=== PATIENT | female | born 1950 | race Caucasian/White ===

== ENCOUNTER → 2020-05-18 13:03 | Outpatient (BNVA) | payer MEDICARE, SELFPAY | PROVIDERS: Family Provider Family Medicine; Referring Provider Nurse Practitioner Family; Visit Provider Podiatrist Foot & Ankle Surgery | DX: M79.671 Pain in right foot (principal); M79.672 Pain in left foot; G62.9 Polyneuropathy, unspecified | CPT/HCPCS: 73630 ==

== ENCOUNTER 2021-02-08 10:51 | Outpatient (CLI) | payer MEDICARE, SELFPAY ==
--- NOTE | 2021-02-08 10:54 | MM_ITS ---
WS: [id number] SCREENING DIGITAL MAMMOGRAM WITH CAD HISTORY: SCREENING COMPARISON: 01/28/2019 and 01/01/2018 Bilateral CC and MLO views submitted. Computer aided detection analyzed. Breast composition: There are scattered areas of fibroglandular density. No suspicious masses, microc alcifications or architectural distortion. Benign lucent centered calcification in the anterior RIGHT breast. MM/[place] [id number] IMPRESSION: BI-RADS: 2-Benign FOLLOW UP: 1 Year Follow-up
== END 2021-02-08 10:52 | disposition home or self-care (01) ==
LOC: RADSHAW 10:53
PROVIDERS: Visit Provider Nurse Practitioner Family
DX: Z12.31 Encounter for screening mammogram for malignant neoplasm of breast (principal)
CPT/HCPCS: 77067

== ENCOUNTER → 2021-03-09 15:34 | Outpatient (BNVA) | payer MEDICARE, SELFPAY | PROVIDERS: PCP Nurse Practitioner Family; Visit Provider Podiatrist Foot & Ankle Surgery | DX: M21.611 Bunion of right foot (principal) | CPT/HCPCS: 73630 ==

== ENCOUNTER 2021-03-22 07:55 | Outpatient (CLI) | payer MEDICARE, SELFPAY ==
--- NOTE | 2021-03-22 08:18 | XR_ITS ---
WS: [id number] Exam: XR cervical spine 4-5V [id number] Date/Time of Exam: 03/22/2021 8:19 AM Reason For Exam: CERVICALGIA No fracture or dislocation. Moderately advanced degenerative disc changes from C3 to C7 with spondylo sis. No instability or subluxation noted on flexion or extension views. There is Limited flexion with some straightening of the C-spine. Paraspinal soft tissues appear normal. The odontoid is intact. Fa cet arthropathy at all levels. XR/XR cervical spine 4-5V 93007 IMPRESSION: 1. No fracture, malalignment or instability. 2. Moderately advanced degenerative changes from C3 to C7.
== END 2021-03-22 07:56 | disposition home or self-care (01) ==
PROVIDERS: PCP Nurse Practitioner Family; Visit Provider Nurse Practitioner Family
DX: M54.2 Cervicalgia (principal)
CPT/HCPCS: 72050

== ENCOUNTER 2021-05-17 05:49 | Outpatient (CLI) | payer MEDICARE, SELFPAY ==
[2021-05-17] VITALS (7 sets, daily range): BP systolic 119–154; BP diastolic 73–88; PULSE 67–77; RESP 15–16; TEMP 36.6–36.7; O2SAT 94–97; BMI 26.3
--- NOTE | 2021-05-17 07:28 | AMB.MCA ---
Patient Information Referred by: Chanda Morgan Symptom onset date: 05/11/21 COVID 19 common symptoms: positive cough, loss of sense of smell and/or taste and nausea Severity: mild Treatment prior to arrival: none [facility] COVID test results: No Data to Display outside results available, scanned (positive PCR 05/13) Criteria/Plan Inclusion/Exclusion Criteria weight >/= 40kg, + direct test </= 10 days ago and symptom onset </= 10 days ago age >/= 65 not requiring hospitalization, not requiring oxygen (if not chronically on oxygen) and no increase oxygen requirement (if chronically on oxygen) Patient education patient/family/caregiver received/reviewed fact sheet, Emergency Use Authorization/unapproved drug status discussed with patient/family/caregiver, alternatives to this treatment discussed with patient/family/caregiver, risks and benefits of medication reviewed with patient/family/caregiver, patient/family/caregiver given opportunity for questions, which were answered and patient consents to receiving Monoclonal Antibody Treatment Plan for treatment Meets criteria for Monoclonal Antibody infusion Ordering Monoclonal Antibody infusion for today
--- NOTE | 2021-05-17 09:27 | PC.NURSE ---
PT SITTING IN CHAIR COMFORTABLY. VITAL SIGNS TAKEN. PATIENT WNL.
--- NOTE | 2021-05-21 13:16 | DCPLANNER ---
communication manager had message that patient received the monoclonal antibody infusion. communication manager called phone number [phone], unable to speak with patient at this time, a voicemail was left for patient.
== END 2021-05-17 05:50 | disposition home or self-care (01) ==
LOC: ER 05:54
PROVIDERS: PCP Nurse Practitioner Family; Visit Provider Family Medicine
DX: U07.1 COVID-19 (principal)

== ENCOUNTER 2021-06-22 09:02 | Outpatient (CLI) | payer MEDICARE, SELFPAY ==
--- NOTE | 2021-06-22 09:20 | XR_ITS ---
WS: [id number] Exam: XR foot RT min 3V* [id number] Date/Time of Exam: 06/22/2021 9:37 AM Reason For Exam: R ANKLE PAIN/ACCIDENTAL FALL/ANKLE SWELLING JOINT PAIN Comparison 03/09/2021. There is a transverse fracture through the styloid process of the proximal fifth metatarsal. No signi ficant displacement. No other fractures are identified. No soft tissue foreign bodies. Anterior and p osterior calcaneal spurs. XR/XR foot RT min 3V* [id number] IMPRESSION: 1. Nondisplaced transverse fracture through the proximal fifth metatarsal.
== END 2021-06-22 09:03 | disposition home or self-care (01) ==
PROVIDERS: PCP Nurse Practitioner Family; Visit Provider Nurse Practitioner Family
DX: M25.471 Effusion, right ankle (principal); S92.354A Nondisplaced fracture of fifth metatarsal bone, right foot, initial encounter for closed fracture; W19.XXXA Unspecified fall, initial encounter
CPT/HCPCS: 73630

== ENCOUNTER → 2021-07-09 13:00 | Outpatient (BNVA) | payer MEDICARE, SELFPAY | PROVIDERS: PCP Nurse Practitioner Family; Referring Provider Nurse Practitioner Family; Visit Provider Podiatrist Foot & Ankle Surgery | DX: S92.351A Displaced fracture of fifth metatarsal bone, right foot, initial encounter for closed fracture (principal); X58.XXXA Exposure to other specified factors, initial encounter | CPT/HCPCS: 73630 ==

== ENCOUNTER → 2021-08-12 08:01 | Outpatient (BNVA) | payer MEDICARE, SELFPAY | PROVIDERS: PCP Nurse Practitioner Family; Visit Provider Podiatrist Foot & Ankle Surgery | DX: S92.351D Displaced fracture of fifth metatarsal bone, right foot, subsequent encounter for fracture with routine healing (principal); X58.XXXD Exposure to other specified factors, subsequent encounter | CPT/HCPCS: 73630 ==

== ENCOUNTER 2021-09-06 08:52 | Outpatient (CLI) | payer MEDICARE, SELFPAY ==
--- NOTE | 2021-09-06 08:57 | XR_ITS ---
WS: [id number] SCREENING DEXA SCAN [employer] CLINICAL INFORMATION: ASYMPTOMATIC MENOPAUSAL STATE, UNSPECIFIED FRACTURE OF FOOT COMPARISON: None. FINDINGS: The L1-L4 bone mineral density measures 0.859 g/cm2. This corresponds to a T score score of -2.7 and Z score of -1.2. Left femoral neck bone mineral density measures 0.817 g/cm2. This corresponds to a T score of -1.5 an d Z score of -0.1. Right femoral neck bone mineral density measures 0.785 g/cm2. This corresponds to a T score -1.8of an d Z score of -0.3. Mean femoral neck bone mineral density measures 0.801 g/cm2. This corresponds to a T score of -1.6 an d Z score of -0.2. XR/XR DEXA axial skeleton* [id number] IMPRESSION: Osteoporosis in the lumbar spine. Osteopenia in the femoral necks. Patient's FRAX calculated 10 year probability for major osteoporotic fracture i s 21.0 % and osteoporotic hip fracture is 4.9%.
== END 2021-09-06 08:53 | disposition home or self-care (01) ==
PROVIDERS: PCP Nurse Practitioner Family; Visit Provider Nurse Practitioner Family
DX: M19.90 Unspecified osteoarthritis, unspecified site (principal); Z78.0 Asymptomatic menopausal state; S92.909A Unspecified fracture of unspecified foot, initial encounter for closed fracture; X58.XXXA Exposure to other specified factors, initial encounter; M81.0 Age-related osteoporosis without current pathological fracture; M85.88 Other specified disorders of bone density and structure, other site
CPT/HCPCS: 77080

== ENCOUNTER → 2021-09-15 08:01 | Outpatient (BNVA) | payer MEDICARE, SELFPAY | PROVIDERS: PCP Nurse Practitioner Family; Visit Provider Podiatrist Foot & Ankle Surgery | DX: S92.354D Nondisplaced fracture of fifth metatarsal bone, right foot, subsequent encounter for fracture with routine healing (principal); X58.XXXD Exposure to other specified factors, subsequent encounter | CPT/HCPCS: 73630 ==

== ENCOUNTER → 2022-04-27 09:17 | Outpatient (BNVA) | payer MEDICARE, SELFPAY | PROVIDERS: PCP Nurse Practitioner Family; Referring Provider Nurse Practitioner Family; Visit Provider Orthopaedic Surgery | DX: M67.911 Unspecified disorder of synovium and tendon, right shoulder (principal); M25.511 Pain in right shoulder | CPT/HCPCS: 73030; 99203 ==

== ENCOUNTER → 2022-05-11 08:59 | Outpatient (BNVA) | payer MEDICARE, SELFPAY | PROVIDERS: PCP Nurse Practitioner Family; Visit Provider Nurse Practitioner Family | DX: M67.912 Unspecified disorder of synovium and tendon, left shoulder (principal) | CPT/HCPCS: 20610; 99213; 99214 ==

== ENCOUNTER 2022-06-02 08:35 | Outpatient (CLI) | payer MEDICARE, SELFPAY ==
--- NOTE | 2022-06-02 08:42 | MR_ITS ---
WS: [id number] MRI RIGHT SHOULDER HISTORY: PAIN IN R SHOULDER/STIFFNESS OF UNSPECIFIED JOINT COMPARISON: 04/27/2022 TECHNIQUE: Multiplanar sequences of the shoulder joint are submitted. Moderate AC joint hypertrophy. There is fluid extending through the AC joint which is contiguous with the subacromial bursa. Hypertrophic osteophytes encroaching upon the myotendinous insertion of the s upraspinatus. Mild acromial impingement. Moderate fluid in the subacromial and subdeltoid bursa. Join t effusion extends into the axillary pouch. No os acromion. Biceps tendon in normal position. Heart riding humeral head. Mild subacromial impingement. There is significant motion artifact. Supras pinatus tendon is torn completely and retracted to the medial humeral head. Additional tear at the in sertion site of the infraspinatus with tendinopathy. There is fluid extending interstitial along the infraspinatus tendon sheath. Subscapularis tendon is intact. Narrowing of the glenohumeral joint. Int rasubstance degeneration of the labrum. No labral tear identified. No fractures. MR/MR shoulder RT wo con* [id number] IMPRESSION: 1. Quality of this examination is limited by motion artifact. 2. Severe AC joint osteoarthritis with encroachment upon the myotendinous inse rtion of the supraspinatus. 3. Complete tear of the supraspinatus tendon with retraction to the glenoid. 4. Partial high-grade tear distal infraspinatus tendon with fluid extending al tara the tendon sheath. Additional tendinopathy and thickening of the more proxi mal tendon. 5. Glenohumeral joint osteoarthritis. 6. Moderate subacromial and subdeltoid bursal distention and axillary pouch ef fusion.
== END 2022-06-02 08:36 | disposition home or self-care (01) ==
LOC: RAD 08:36
PROVIDERS: PCP Nurse Practitioner Family; Visit Provider Nurse Practitioner Family
DX: M25.60 Stiffness of unspecified joint, not elsewhere classified (principal); M24.811 Other specific joint derangements of right shoulder, not elsewhere classified; M19.011 Primary osteoarthritis, right shoulder
CPT/HCPCS: 73221

== ENCOUNTER → 2022-06-21 08:41 | Outpatient (BNVA) | payer MEDICARE, SELFPAY | PROVIDERS: PCP Nurse Practitioner Family; Visit Provider Orthopaedic Surgery | DX: Z09 Encounter for follow-up examination after completed treatment for conditions other than malignant neoplasm (principal); M75.101 Unspecified rotator cuff tear or rupture of right shoulder, not specified as traumatic | CPT/HCPCS: 99213; 99214 ==

== ENCOUNTER 2022-07-21 08:04 | Day surgery (SDC) | payer MEDICARE, SELFPAY ==
[2022-07-20 11:57] VITALS: BMI 25.9
[2022-07-21] VITALS (13 sets, daily range): BP systolic 133–184; BP diastolic 76–96; PULSE 77–99; RESP 14–18; TEMP 36.1–36.6; O2SAT 95–100
--- NOTE | 2022-07-21 08:34 | ANES.PREANE2 ---
Pre-Anesthetic Assessment Height/Weight: Height 1.65 m Weight 70.76 kg Temp Pulse Resp BP Pulse Ox O2 Del Method 97.9 F 78 16 184/96 97 07/21/22 08:17 07/21/22 08:17 07/21/22 08:17 07/21/22 08:17 07/21/22 08:17 07/21/22 08:25 Preop Diagnosis: Rotator cuff tear right shoulder Operation Date: 07/21/22 09:30 Proposed Procedures p rotator cuff repair right:79690,M75.101(Right) - Broderick Lawrence MD s Shoulder Arthroscopy(Right) - Broderick Lawrence MD Familial anesthetic complications: none Was Beta Ruben taken within 24 hours: N/A Was Clonidine taken within 24 hours: N/A Last intake: Intake Last Liquid Date 07/20/22 Last Liquid Time 23:00 Last Solid Date 07/20/22 Last Solid Time 18:30 Social No alcohol and No tobacco Exam alert, oriented x 3, clear to auscultation bilaterally and regular rate & rhythm Airway Submandibular: within normal limits Cervical ROM: within normal limits Mallampati: Class II Comments: Comments: Missing most teeth Pulmonary None reported CV/HEM Flecainide since 1993 for diagnosis not known to patient other that fast heart which was never associated with pre syncope, n/v, [place] - since than has been on same dose of medication with no known symptoms since. None reported Hepatic None reported GI Gastroesophageal Reflux Disease Metabolic Hyperlipidemia Neuropsych Neuropathy Anesthetic Plan ASA status: 2 Anesthesia: Anesthesia Evaluation, General and Regional (specify below) (Brachial plexus block) Other: We discussed risk and benefits of general anesthesia including PONV, sore throat (sometimes severe), corneal abrasion, positioning and peripheral nerve injuries, life threatening allergic reaction, post operative ICU admission requiring prolonged intubation, aspiration, stroke, heart attack, , and rare incidences of recall. Patient consents to proceed with general anesthesia. We discussed risk and benefits of nerve block for post op pain control including management of pain and titration of pain medications as signs/symptoms of nerve block wearing off begin to appear and/or prior bed. We discussed risk of failed nerve block, vascular injury or other vital structure injury, abscess/infection, LAST, and nerve injury. Plan general anesthesia, BP within 10% of baseline targeted at the auditory meatus taking into consideration distance between auditory meatus and BP cuff position and conversion factor of 1.36 cm H20 = 1 mmHg Medications/Allergies Home Medications Medication Instructions Recorded Confirmed Last Taken Type gabapentin 300 mg capsule 300 mg PO TID 05/18/20 07/21/22 07/21/22 History gemfibrozil 600 mg tablet 600 mg PO BID 05/18/20 07/21/22 07/21/22 History levothyroxine 25 mcg capsule 25 mcg PO DAILY 05/18/20 07/21/22 07/21/22 History flecainide 100 mg tablet 100 mg PO Q12H 03/09/21 07/21/22 07/21/22 History omeprazole magnesium 20 mg 20 mg PO BID 03/09/21 07/21/22 07/21/22 History tablet,delayed release (Prilosec OTC) ezetimibe 10 mg tablet (Zetia) 10 mg PO DAILY 07/20/22 07/21/22 07/20/22 History Allergies Allergy/AdvReac Type Severity Reaction Status Date / Time Sulfa (Sulfonamide Allergy Intermediate rash Verified 07/20/22 11:51 Antibiotics) PFSH Anesthesia Medical History Hypercholesterolemia Hypothyroid Neuropathy Surgical History H/O: hysterectomy (~1998) Previous back surgery (~2014) Family History Mother CAD (coronary artery disease) Father CAD (coronary artery disease) Diabetes Denies family history of Chronic kidney disease (CKD) Suicide Bleeding disorder Cancer Social History Smoking and tobacco status: never smoked Alcohol intake: never Household members: spouse Housing: House Marital status: Current occupational status: retired Data Anesthesia Cardiac Studies: No Data to Display
[2022-07-21] MEDS: sodium chloride 0.9% 1,000 ML 30 ML IV (08:36)
[2022-07-21] MEDS: acetaminophen 500 mg Tablet 1000 MG PO (08:36)
--- NOTE | 2022-07-21 08:41 | ECG_ITS ---
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 Measurements Intervals Diggs Rate: 71 P: 57 NE: 203 QRS: 118 QRSD: 104 T: 42 QT: 402 QTc: 439 Interpretive Statements SINUS RHYTHM INDETERMINATE AXIS INCOMPLETE RIGHT BUNDLE BRANCH BLOCK [90+ ms QRS DURATION, TERMINAL R IN V1/V2, 40+ ms S IN I/aVL/V4/V5/V6] LEFT POSTERIOR FASCICULAR BLOCK [QRS AXIS > 109, INFERIOR Q] No previous ECG available for comparison Electronically Signed On 07-21-2022 20:49:03 CDT by Mehrdad Toussaint M.D. [id number]
--- NOTE | 2022-07-21 08:57 | W.PM.OPSUD ---
Surgery/Procedure H&P Update DATE OF PROCEDURE: July 21, 2022 DATE H&P PERFORMED: 06/21/22 H&P UPDATE INFORMATION: I have reviewed H&P completed within last 30 days PREOP DIAGNOSIS: Rotator cuff tear right shoulder PLANNED PROCEDURE: Operation Date: 07/21/22 09:30 Proposed Procedures p rotator cuff repair right:07163,M75.101(Right) - Broderick Lawrence MD s Shoulder Arthroscopy(Right) - Broderick Lawrence MD
[2022-07-21] MEDS: midazolam 1 mg/mL INJ 2 mL 2 MG IVP (09:12)
[2022-07-21] MEDS: ceFAZolin 2,000 MG in sodium chloride 0.9% (plus) 50 ML 100 MG IV (09:23)
--- NOTE | 2022-07-21 09:50 | ANES.PROC ---
Anesthesia Procedures Procedure/Date: 07/21/22 Nerve Block ^: Nerve Block 1: Main Anesthesia: general anesthesia Time Out Performed: Yes Consent: requested by attending/covering physician, from patient, risks and benefits reviewed and patient agrees to proceed Nerve block location: interscalene Anesthesia monitors applied: pulse oximetry, EKG, BP cuff and oxygen Nerve block position: semi sitting Anesthetic Used: bupivacaine 0.5% Amount of anesthesia used (mL): 20 Ultrasound used to: visualize and ID brachial plexus Nerve Stimulator Used?: No Interscalene/Femoral BLK: 2 stimuplex 22 g needle used for position and inplane approach, visualize local anesthetic spread and no vascular puncture identified Injection: neg aspiration of heme Patient Tolerated Procedure: well Complications: none Additional Comments: After time out sterile prep, using sterile technique, and using real time US guidance for target selection needle was inserted with real time visualization of needle entry and real time visualization of needle advancement toward intended target. Negative aspiration. LA injected incrementally with negative aspiration every 5 cc and real time US visualization of LA spread throughout procedure. Tolerated well. Image(s) saved.
--- NOTE | 2022-07-21 10:44 | SUR.OPER ---
Called and notified him of surgical progress
--- NOTE | 2022-07-21 12:01 | PM.OP ---
Operative Report Date of procedure: July 21, 2022 Pre-op diagnosis: Preop Diagnosis Rotator cuff tear/impingement right shoulder Procedure done: Arthroscopic repair right rotator cuff with bio inductive patch Arthroscopic right subacromial decompression Arthroscopic right biceps tenotomy Implants: Leija and Nephew Helicoil 4.5 mm anchors x2 Leija and Nephew Regeneten patch Pathology: none sent Surgeon: Broderick Lawrence Anesthesia: General and Nerve Block (Interscalene) Estimated blood loss (mL): 10 Findings: The patient had a large involving the supraspinatus and superior infraspinatus retraction just medial to the level of the glenoid. She had soft bone consistent with age but tendon quality was reasonable particularly posteriorly. She had anterior spurring of her acromion. She had exposure of her biceps tendon beneath the tear Condition: stable Disposition: PACU Brief History: The patient is with a 4-month history of nontraumatic onset right shoulder pain. An MRI revealed a large tear involving the supraspinatus and infraspinatus tendons. Her pain was arthroscopic surgery was chosen in an effort to repair the rotator cuff and improve pain and function her pain could not be controlled. She failed a program of physical therapy. Procedure: Ms. Peace was taken to the operating room after she was given interscalene block in holding. She was given 2 g of Ancef. Anesthesia provided a general endotracheal anesthesia. She was positioned in the lateral position with the right arm in traction. A timeout was performed. Initially the shoulder was entered through a posterior portal made 2 cm inferior and medial to the posterior corner of the acromion. Upon entering the glenohumeral joint the large rotator cuff tear was identified. The humeral head was free of chondromalacia. Her bicep tendon was exposed completely. The scope was then redirected to the glenohumeral space and an additional anterior and lateral portal was made with a scalpel blade. Bursal tissue was removed with the Leija and Nephew Werewolf probe. The large tear was identified. Cuff quality actually seemed quite reasonable posteriorly and with a grasper the posterior medial cuff could be mobilized anteriorly and laterally. Decision was made to attempt repair. Initial attention was focused on the biceps tendon. Initial efforts were made at a biceps tenodesis in the bicipital groove. A Q fix anchor was placed in the proximal bicipital groove however quality was poor with the bone and the anchor pulled out. A decision was made to proceed with the tenotomy. Utilizing the Leija and Nephew Werewolf probe the biceps was released from its insertion on the superior labrum. Next, the leading edge of the acromion was outlined with a 5.5 mm acromionizer. Approximately 5 mm of anterior and inferior acromion were removed, converting the acromion to a flat morphology. Final attention was focused on the rotator cuff. The greater tuberosity was debrided and the most lateral portion of the the cartilage debrided in an effort to allow slight medialization of the rotator cuff and improved tension on the repair. A Leija and Nephew Helicoil 4.5 mm anchor was placed in this posterior medial debrided trough of bone. A Leija and NephiMusicTweet FirstPass suture passer was used to shuttle each limb of tape through the far posterior rotator cuff approximately 5 mm from the edge. Those sutures were secured drawing the posterior cuff to the medial debrided trough of bone. This was repeated approximately 8 mm anteriorly with a second suture bringing more of a supraspinatus tendon to bone. The most anterior portion of the supraspinatus and leading into the subscapularis were fairly poor quality and a tendon to bone repair was not thought to be possible. The Leija and NephiMusicTweet FirstPass suture passer was used to shuttle a ultra braid through the anterior and posterior portions of the remaining tear and this was approximated leaving a small footprint unrepaired tissue anteriorly and laterally with the supraspinatus. Through more inferior lateral portal a regenerative tendon patch was passed. It was fixed medially with soft tissue alfredo and laterally with free bone alfredo providing coverage over the repair. The shoulder was irrigated with saline. Portals were closed with 3-0 Prolene. Sterile dressings were applied. The patient was placed in abduction pillow, extubated, and taken to recovery room in stable condition.
[2022-07-21] MEDS: ondansetron 2 mg/ML SDV 2 mL 4 MG IVP (13:29)
[2022-07-21] MEDS: oxyCODONE 5 mg IR Tab/Cap PO (14:06)
--- NOTE | 2022-07-21 14:41 | ANE.PACU2 ---
Inpatient post-anesthesia follow up: Airway intact: Yes Vital signs: Temperature 97.5 F Pulse Rate 93 Respiratory Rate 18 Blood Pressure 142/87 Pulse Oximetry 97 Oxygen Delivery Me thod Room Air Oxygen Flow Rate 2 Fraction of Inspir ed Oxygen Hydration adequate: Yes Nausea and vomiting: No Pain level: 1 Mental status: Baseline
== END 2022-07-21 15:00 | disposition home or self-care (01) ==
PROVIDERS: PCP Nurse Practitioner Family; Visit Provider Orthopaedic Surgery
PROC: (CPT 29826; principal; 2022-07-21 09:20)
PROC: (CPT 29805; 2022-07-21 09:20)
DX: M75.101 Unspecified rotator cuff tear or rupture of right shoulder, not specified as traumatic (principal); E78.00 Pure hypercholesterolemia, unspecified; E03.9 Hypothyroidism, unspecified
CPT/HCPCS: 29826; 29827; 29828; 93005; C1713; J0330; J1100; J2250; J2405; J2704; J2795; J3010; J3490; J7030

== ENCOUNTER → 2022-07-26 08:31 | Outpatient (BNVA) | payer MEDICARE, SELFPAY | PROVIDERS: PCP Nurse Practitioner Family; Visit Provider Nurse Practitioner Family | DX: Z98.890 Other specified postprocedural states (principal) | CPT/HCPCS: 99024 ==

== ENCOUNTER → 2022-08-04 13:29 | Outpatient (BNVA) | payer MEDICARE, SELFPAY | PROVIDERS: PCP Nurse Practitioner Family; Visit Provider Nurse Practitioner Family | DX: Z98.890 Other specified postprocedural states (principal) | CPT/HCPCS: 99024 ==

== ENCOUNTER → 2022-08-31 14:15 | Outpatient (BNVA) | payer MEDICARE, SELFPAY | PROVIDERS: PCP Nurse Practitioner Family; Visit Provider Nurse Practitioner Family | DX: M75.101 Unspecified rotator cuff tear or rupture of right shoulder, not specified as traumatic (principal); Z98.890 Other specified postprocedural states | CPT/HCPCS: 99024 ==

== ENCOUNTER → 2022-11-03 14:24 | Outpatient (BNVA) | payer MEDICARE, SELFPAY | PROVIDERS: PCP Nurse Practitioner Family; Visit Provider Nurse Practitioner Family | DX: M75.101 Unspecified rotator cuff tear or rupture of right shoulder, not specified as traumatic (principal); Z98.890 Other specified postprocedural states | CPT/HCPCS: 99213 ==

== ENCOUNTER 2022-12-22 10:12 | Outpatient (CLI) | payer MEDICARE, SELFPAY ==
--- NOTE | 2022-12-22 10:25 | USCV_ITS ---
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 Resting TBI of 0.82 on the right and 0.82 on the left CONCLUSIONS Normal resting ABIs and TBIs bilaterally No evidence of any significant arterial obstruction, based on the above findings. Dr Mehrdad Toussaint MD [facility] (Electronically Signed) Final Date: 23 December 2022 09:19 S
--- NOTE | 2022-12-22 10:25 | USCV_ITS ---
Emilia Peace Age: 72 Gender: F : 1950 Exam Date: 12/22/2022 10:38 Ordering Phys: Ameena Licona OIL BURNER JOURNEYMAN Technologist: CT [place]am [place] [facility] [place] Indication: rt leg pain and swelling PROCEDURES: Venous duplex imaging was performed in only the right lower extremity. The following venous structures were evaluated: common femoral vein, profunda vein, proximal portion of the greater saphenous vein, superficial femoral vein, and the popliteal vein. In addition, the posterior tibial veins were evaluated. Serial compression, augmentation maneuvers, and spectral Doppler flow evaluation were performed. FINDINGS: Normal 2-D Doppler and augmentation and compressibility throughout the lower extremity venous structures. Additional imaging through the proximal calf veins also reveals no thrombus. Limited evaluation of the greater saphenous vein is patent with no thrombus.. CONCLUSIONS No evidence of right lower extremity DVT. Napoleon Jones MD (Electronically Signed) Final Date: 22 December 2022 12:13 S
== END 2022-12-22 10:13 | disposition home or self-care (01) ==
PROVIDERS: PCP Nurse Practitioner Family; Visit Provider Nurse Practitioner Family
DX: M79.604 Pain in right leg (principal); M79.89 Other specified soft tissue disorders; I73.9 Peripheral vascular disease, unspecified
CPT/HCPCS: 93922; 93971

== ENCOUNTER → 2023-01-04 08:03 | Outpatient (BNVA) | payer MEDICARE, SELFPAY | PROVIDERS: PCP Nurse Practitioner Family; Visit Provider Orthopaedic Surgery | DX: Z98.890 Other specified postprocedural states (principal) | CPT/HCPCS: 99212; 99213 ==

== ENCOUNTER → 2023-01-12 08:24 | Outpatient (BNVA) | payer MEDICARE, SELFPAY | PROVIDERS: PCP Nurse Practitioner Family; Visit Provider Nurse Practitioner Family | DX: S46.002A Unspecified injury of muscle(s) and tendon(s) of the rotator cuff of left shoulder, initial encounter (principal); X50.0XXA Overexertion from strenuous movement or load, initial encounter | CPT/HCPCS: 73030; 99214 ==

== ENCOUNTER 2023-01-27 07:29 | Outpatient (CLI) | payer MEDICARE, SELFPAY ==
--- NOTE | 2023-01-27 07:15 | MR_ITS ---
WS: [id number] MRI RIGHT SHOULDER HISTORY: shoulder pain, recent surgery RIGHT shoulder. Continued pain and decreased mobility. COMPARISON: 06/02/2022 TECHNIQUE: Multiplanar sequences of the shoulder joint are submitted. Extensive micrometallic artifact surrounding the shoulder from prior surgery. Several anchors are not ed in the humeral head. Progression of inflammatory changes and edema surrounding the AC joint. Fluid in the expected location of the AC ligament with narrowing of the joint space. Subacromial impingeme nt upon the humeral head bone upon bone. No os acromion. Biceps tendon is not identified in the bicip ital groove. New finding since the prior study. Severely high riding humeral head abutting the undersurface of the acromion. Marked narrowing of the glenohumeral joint. There is a large joint effusion surrounding the humeral head and extending into t he axillary pouch. Complete tear with retraction of the supraspinatus tendon to the medial humeral he ad. Full-thickness supraspinatus tendon tear. Mild fraying involving the surface of the tendon. [place]hawne anatoly supraspinatus atrophy appears progressed since the prior study. Mild atrophy of the infraspinatus m uscle. There may be a partial tear of the distal infraspinatus tendon but is very poorly visualized. Overall the appearance of the infraspinatus tendon appears improved with less fluid along the tendon. Subscapularis tendon is intact. No labral tear is identified. MR/MR shoulder RT wo con* [id number] IMPRESSION: 1. Complete full-thickness supraspinatus tendon tear with retraction to the me dial humeral head. 2. Mild progression of atrophy supraspinatus muscle. 3. Improved appearance of the infraspinatus tendon. A small partial insertion site tear is not completely excluded. 4. Progression AC joint edema and degenerative changes. 5. Postoperative changes are identified. Several anchors in the humeral head a nd micrometallic artifact. 6. Possible biceps tendon tear or subluxation. Biceps tendon is not identified within the bicipital groove as on the prior study. 7. Edema and loss of the normal cortical surface of the humeral head at the si te of the anchor placement.
--- NOTE | 2023-01-27 08:00 | MR_ITS ---
WS: [id number] MRI LEFT SHOULDER HISTORY: pain COMPARISON: None available. TECHNIQUE: Multiplanar sequences of the shoulder joint are submitted. Moderate to severe AC joint osteoarthritic changes. Hypertrophic bone and soft tissue encroachment up on the supraspinatus. Narrowing of the joint space. Minimal subacromial impingement. A small amount o f fluid in the subacromial and subdeltoid bursa. Biceps tendon is normally positioned in the bicipita l groove. No os acromion. There is extensive edema with mild atrophy involving the supraspinatus muscle. This edema is confined to the supraspinatus. Extensive edema and loss of the normal architecture of the tendon throughout t he course over the humeral head. There is mass effect and compression by the AC joint arthritis. Deshawn ed thickening of the distal tendon. No obvious retraction. Subscapularis and infraspinatus tendons ar e normal. No labral tear is identified. No mass identified in the spinoglenoid notch. MR/MR shoulder LT wo con* [id number] IMPRESSION: 1. Severe diffuse supraspinatus muscle edema with loss of the normal sales architect ure of the distal supraspinatus tendon with thickening and tendinopathy. Very a bnormal appearance of the supraspinatus muscle and tendon. Etiologies to consid er are acute brachial neuritis such as [place]arson[place]-Maier syndrome. Sparing of th e infraspinatus muscle. Consider posttraumatic. 2. Moderate to severe AC joint arthritis with encroachment upon the supraspin atus.
== END 2023-01-27 07:30 | disposition home or self-care (01) ==
PROVIDERS: PCP Nurse Practitioner Family; Visit Provider Orthopaedic Surgery
DX: M13.812 Other specified arthritis, left shoulder (principal); M75.101 Unspecified rotator cuff tear or rupture of right shoulder, not specified as traumatic; R60.0 Localized edema; Z98.890 Other specified postprocedural states
CPT/HCPCS: 73221

== ENCOUNTER → 2023-01-31 08:47 | Outpatient (BNVA) | payer MEDICARE, SELFPAY | PROVIDERS: PCP Nurse Practitioner Family; Visit Provider Orthopaedic Surgery | DX: M75.101 Unspecified rotator cuff tear or rupture of right shoulder, not specified as traumatic (principal); R29.898 Other symptoms and signs involving the musculoskeletal system | CPT/HCPCS: 99214 ==

== ENCOUNTER 2023-02-07 06:26 | Outpatient (CLI) | payer MEDICARE, SELFPAY ==
--- NOTE | 2023-02-07 06:30 | CT_ITS ---
WS: [id number] CT RIGHT SHOULDER WITHOUT CONTRAST TECHNIQUE: CT RIGHT shoulder with coronal and sagittal reformatted images. MIP images CLINICAL INFORMATION: pre op planning COMPARISON: MRI January 27, 2023 DLP: 236.[address] scans at [facility] use at least one of these dose optimization techniques: automated e xposure control; mA and/or kV adjustment per patient size (includes targeted exams where dose is matc hed to clinical indication); or iterative reconstruction. FINDINGS: Full-thickness supraspinatus tear with retraction to the glenohumeral joint better seen on the recent MRI. Loss of the subacromial space with degenerative changes AC joint. Mild downsloping acromion. Mo derate to advanced degenerative narrowing of the glenohumeral joint. Evidence of prior postoperative changes involving the greater tuberosity humeral head. Cystic changes involving the greater tuberosit y. Normal glenoid. Normal coracoid. Scapula is normal in appearance. RIGHT lung is well aerated. CT/CT shoulder RT wo con* [id number] IMPRESSION: Images obtained for preoperative planning.
== END 2023-02-07 06:27 | disposition home or self-care (01) ==
LOC: RAD 06:27
PROVIDERS: PCP Nurse Practitioner Family; Visit Provider Orthopaedic Surgery
DX: M75.101 Unspecified rotator cuff tear or rupture of right shoulder, not specified as traumatic (principal)
CPT/HCPCS: 73200

== ENCOUNTER 2023-02-10 10:27 | Outpatient (CLI) | payer MEDICARE, SELFPAY | END 2023-02-10 10:28 | disposition home or self-care (01) | LOC: RT 02-15 11:45 | PROVIDERS: PCP Nurse Practitioner Family; Visit Provider Orthopaedic Surgery | DX: Z01.810 Encounter for preprocedural cardiovascular examination (principal); I45.10 Unspecified right bundle-branch block | CPT/HCPCS: 93005 ==

== ENCOUNTER 2023-02-20 16:37 | Observation (INO) | payer MEDICARE, SELFPAY ==
[2023-02-10 10:22] VITALS: BMI 26.7
--- NOTE | 2023-02-10 10:27 | ECG_ITS ---
[facility] Test Date: 2023-02-10 Pat Name: Emilia Peace Department: Room: Gender: Female Operating Room Technologist: : 1950 Requested By: Lamont Ballard Order Number: [id number] Adriana MD: Ric English M.D. Measurements Intervals Porter Rate: 61 P: 70 NH: 206 QRS: 46 QRSD: 117 T: 45 QT: 399 QTc: 403 Interpretive Statements SINUS RHYTHM INCOMPLETE RIGHT BUNDLE BRANCH BLOCK [90+ ms QRS DURATION, TERMINAL R IN V1/V2, 40+ ms S IN I/aVL/V4/V5/V6] Compared to ECG 07/21/2022 08:41:11 Indeterminate axis no longer present Left posterior fascicular block no longer present Electronically Signed On 02-10-2023 13:52:51 CDT by Ric English M.D. [id number]
[2023-02-10 11:03] LABS: Basophils # 0.1 10^3/uL (0.0-0.1); Basophils % 0.8 %; Eosinophils # 0.1 10^3/uL (0.0-0.8); Eosinophils % 1.5 %; Hematocrit 42.2 % (37.0-47.0); Hemoglobin 13.9 g/dL (11.5-15.3); Lymphocytes # 1.8 10^3/uL (0.8-4.8); Lymphocytes % 24.5 %; Mean Corpuscular HGB Conc 32.9 g/dL (30.0-36.0); Mean Corpuscular Hemoglobin 30.3 pg (28.0-34.0); Mean Corpuscular Volume 92.1 fl (81-99); Mean Platelet Volume 9.8 fL (7.4-10.4); Monocytes # 0.5 10^3/uL (0.2-0.9); Monocytes % 6.8 %; Neutrophils # 4.77 10^3/uL (1.8-7.7); Nucleated Red Blood Cells % 0 %; Platelet Count 269 10^3/cmm (130-400); Red Blood Count 4.58 10^6/uL (4.1-5.3); Red Cell Distribution Width 13.2 % (12.1-15.1); White Blood Count 7.2 10^3/uL (4.0-10.0)
[2023-02-10 11:23] LABS: Anion Gap 12.3 (5-19); Blood Urea Nitrogen 15 mg/dL (8-23); Calcium 8.9 mg/dL (8.5-10.5); Carbon Dioxide 27 mmol/L (22-29); Chloride 103 mmol/L (98-107); Glucose 80 mg/dL (65-115); Osmolality Calculated 286 mOsm/kg (285-295); Potassium 4.3 mmol/L (3.5-5.1); Sodium 138 mmol/L (136-145)
--- NOTE | 2023-02-10 12:28 | ANES.PREANE2 ---
Pre-Anesthetic Assessment Height/Weight: Height 1.63 m Weight 70.76 kg Preop Diagnosis: Rotator cuff tear right shoulder Operation Date: 02/20/23 13:15 Proposed Procedures p right reverse total shoulder arthroplasty/ 32552, M75.101(Right) - Broderick Lawrence MD Familial anesthetic complications: none Was Beta Ruben taken within 24 hours: N/A Was Clonidine taken within 24 hours: N/A Social No alcohol and No tobacco Exam alert, oriented x 3, clear to auscultation bilaterally and regular rate & rhythm Airway Submandibular: within normal limits Cervical ROM: within normal limits Mallampati: Class II Dentition: false CV/HEM Arrythmia GI Gastroesophageal Reflux Disease Metabolic Thyroid Disease Anesthetic Plan ASA status: 3 Anesthesia: General and Regional (specify below) (Interscalene blk) Medications/Allergies Home Medications Medication Instructions Recorded Confirmed Last Taken Type gabapentin 300 mg capsule 300 mg PO TID 05/18/20 02/10/23 02/10/23 History gemfibrozil 600 mg tablet 600 mg PO BID 05/18/20 02/10/23 02/10/23 History levothyroxine 25 mcg capsule 25 mcg PO DAILY 05/18/20 02/10/23 02/10/23 History flecainide 100 mg tablet 100 mg PO Q12H 03/09/21 02/10/23 02/10/23 History omeprazole magnesium 20 mg 20 mg PO BID 03/09/21 02/10/23 02/09/23 History tablet,delayed release (Prilosec OTC) oxycodone 5 mg tablet 5 mg PO Q4H PRN pain #40 tabs 07/21/22 02/10/23 Unknown Rx ondansetron HCl 4 mg tablet 4 mg PO Q8H PRN nausea and 07/22/22 02/10/23 02/10/23 Rx vomiting #20 tabs hydrocodone 5 mg-acetaminophen 325 1 tab PO Q6H PRN pain 5 days #20 08/04/22 02/10/23 02/10/23 Rx mg tablet tabs Allergies Allergy/AdvReac Type Severity Reaction Status Date / Time Sulfa (Sulfonamide Allergy Intermediate rash Verified 02/10/23 10:16 Antibiotics) PFSH Anesthesia Medical History Hypercholesterolemia Hypothyroid Neuropathy Surgical History H/O: hysterectomy (~1998) Previous back surgery (~2014) Family History Mother CAD (coronary artery disease) Father CAD (coronary artery disease) Diabetes Denies family history of Chronic kidney disease (CKD) Suicide Bleeding disorder Cancer Social History Smoking and tobacco status: never smoked Alcohol intake: never Household members: spouse Housing: House Marital status: Current occupational status: retired Data Anesthesia 02/10/23 10:50 02/10/23 10:50 Short CBC 02/10/23 Range/Units 10:50 WBC 7.2 (4.0-10.0) 10^3/uL Hgb 13.9 (11.5-15.3) g/dL Hct 42.2 (37.0-47.0) % MCV 92.1 (81-99) fl Plt Count 269 (130-400) 10^3/cmm Neut % (Auto) 66.0 % Neut # (Auto) 4.77 (1.8-7.7) 10^3/uL BMP 02/10/23 10:50 Sodium 138 Potassium 4.3 Chloride 103 Carbon Dioxide 27 BUN 15 Creatinine 0.6 Glucose 80 Calcium 8.9 Cardiac Studies: No Data to Display
[2023-02-20] VITALS (12 sets, daily range): BP systolic 109–169; BP diastolic 69–113; PULSE 77–101; RESP 12–21; TEMP 36.1–36.9; O2SAT 93–100
[2023-02-20] MEDS: sodium chloride 0.9% 1,000 ML 30 ML IV (11:31)
[2023-02-20] MEDS: CELEcoxib 200 mg Capsule 400 MG PO (11:37)
[2023-02-20] MEDS: acetaminophen 500 mg Tablet 1000 MG PO ×2 (11:38→20:56)
[2023-02-20] MEDS: oxyCODONE 20 mg ER (12 HR) Tablet PO (11:38)
--- NOTE | 2023-02-20 13:20 | W.PM.OPSFHP ---
Same Day Surgery H&P Indication for Procedure/HPI DATE OF PROCEDURE: February 20, 2023 CHIEF COMPLAINT/INDICATIONFOR SURGICAL PROCEDURE: Recurrent tearing right rotator cuff here for reverse total shoulder PREOP DIAGNOSIS: Right cuff tear arthropathy PLANNED PROCEDURE: Operation Date: 02/20/23 12:15 Proposed Procedures p right reverse total shoulder arthroplasty/ 97730, M75.101(Right) - Broderick Lawrence MD 72-year-old female here for right reverse total shoulder. She has had persistent shoulder pain after Arthroscopic repair right rotator cuff with bio inductive patch, Arthroscopic right subacromial decompression, and Arthroscopic right biceps tenotomy. DOS: 07/21/22.? MRI revealing a large recurrent right rotator cuff tear. She states things have never really improved.? She has worked diligently with therapy.? She states she better tolerates activities below shoulder height but she has been unable to gain any ability to perform overhead activities.? She still has pain.? Medications/Allergies* Home Medications Medication Instructions Recorded Confirmed Type gabapentin 300 mg capsule 300 mg PO TID 05/18/20 02/20/23 History gemfibrozil 600 mg tablet 600 mg PO BID 05/18/20 02/20/23 History levothyroxine 25 mcg capsule 25 mcg PO DAILY 05/18/20 02/20/23 History flecainide 100 mg tablet 100 mg PO Q12H 03/09/21 02/20/23 History omeprazole magnesium 20 mg 20 mg PO BID 03/09/21 02/20/23 History tablet,delayed release (Prilosec OTC) Allergies/Adverse Reactions Allergy/AdvReac Type Severity Reaction Status Date / Time Sulfa (Sulfonamide Allergy Intermediate rash Verified 02/10/23 10:16 Antibiotics) Current Medications: Generic Name Dose Route Start Last Admin Trade Name Freq PRN Reason Stop Dose Admin Sodium Chloride 1,000 mls @ 30 mls/hr 02/20/23 11:15 02/20/23 11:31 Sodium Chloride 0.9% IV 02/21/23 11:14 30 mls/hr .Q24H KAYLEE Administration Pertinent History/Comorbid Conditions* Medical History (Updated 01/12/23 @ 08:57 by JESSENIA Boyd) Hypercholesterolemia Hypothyroid Neuropathy Surgical History (Updated 07/26/22 @ 09:06 by JESSENIA Boyd) H/O: hysterectomy (~1998) Previous back surgery (~2014) Family History (Updated 05/18/20 @ 13:28 by Sherrill Wright NP) Diabetes Father CAD (coronary artery disease) Mother Father Denies family history of Chronic kidney disease (CKD) Suicide Bleeding disorder Cancer Social History Smoking and tobacco status: never smoked Alcohol intake: never Substance/Drug Use: never Household members: spouse Housing: House Marital status: Current occupational status: retired Pertinent Exam Findings alert, oriented x 3, clear to auscultation bilaterally, regular rate & rhythm and operative site marked SHOULDER right PASSIVE RANGE OF MOTION:? RIGHT EXTREMITY ? Flexion:?120 ? External Rotation: 45 ? ? ? LEFT EXTREMITY ? Flexion: 160 ? External Rotation: 60 ? Internal Rotation: ? Abduction External Rotation: ? Abduction Internal Rotation:? ? ACTIVE FORWARD FLEXION ? RIGHT: 70 ? LEFT:? 160 INSTABILITY:? ROTATOR CUFF STRENGTH: ? ? ? RIGHT EXTREMITY ? Abduction Supination: Diminished with pain ? Abduction Pronation: Diminished with pain ? External Rotation: Good with less pain ? Belly Press: Negative Recommendations Surgery/Procedure today Other Plans: Proceed with right reverse total shoulder Coding Level of Care Code Acute Code for Chg Fwd Diagnoses
[2023-02-20] MEDS: ceFAZolin 2,000 MG in sodium chloride 0.9% (plus) 50 ML 100 MG IV ×2 (14:02→20:56)
[2023-02-20] MEDS: tranexamic acid 1,000 mg/10mL SDV 1000 MG IV (14:25)
--- NOTE | 2023-02-20 14:58 | P.ANESUD_ITS ---
Pre-Anesthetic Update Pre-Anesthetic Assessment: Date of Surgery/Procedure: 02/20/23 Preop Mag gnosis: Right cuff tear arthropathy Proposed Procedure: Operation Date: 02/20/23 12:15 Proposed Procedures p right reverse total shoulder arthroplasty/ 17081, M75.101(Right) - Broderick Lawrence MD Any changes to Pre-Anesthetic Assessment?: No Last Intake: Intake Last Liquid Date 02/19/23 Last Liquid Time 23:30 Last Solid Date 02/19/23 Last Solid Time 23:30 Vitals: Temperature 98.4 F 02/20/23 11:12 Temperature Source Temporal Artery S can 02/20/23 11:12 Pulse Rate 99 02/20/23 11:12 Respiratory Rate 16 02/20/23 11:38 Respiratory Effort Spontaneous 02/20/23 11:38 Respiratory Depth Normal 02/20/23 11:38 Respiratory Patter n Normal 02/20/23 11:38 Blood Pressure 167/113 02/20/23 11:12 Blood Pressure Brigitte n 131 02/20/23 11:12 Pulse Oximetry 93 02/20/23 11:38 Oxygen Delivery Me thod Nasal Cannula 02/20/23 11:12 Exam: Pre-Anes Outpt Exam: alert, oriented x 3, clear to auscultation bila terally and regular rate & rhythm Cardiac Studies: No Data to Display Anesthesia Procedures Nerve Block: Nerve Block 1: Main Anesthesia: general anesthesia Time Out Performed: Yes Consent: requested by attending/covering physician, from patient, risks and benefits reviewed and patient agrees to proceed Nerve block location: interscalene (left) Anesthesia monitors applied: pulse oximetry, EKG, BP cuff and oxygen Nerve block position: semi sitting Anesthetic Used: ropivicaine 0.5% Amount of anesthesia used (mL): 30 Ultrasound used to: recognize landmarks and visualize and ID brachial plexus Nerve Stimulator Used?: No Interscalene/Femoral BLK: 2 stimuplex 22 g needle used for position and inplane approach Injection: neg aspiration of heme Patient Tolerated Procedure: well Complications: none
--- NOTE | 2023-02-20 15:51 | PM.OP ---
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 The patient had little humeral or glenoid wear. Procedure done: Right reverse total shoulder Implants: 1) Tornier Aequalis Ascend Flex 3B stem 2) Flex Shoulder System low offset tray +0mm 3) Flex Shoulder System 36 mm +6 mm reversed insert 4) Perform Reversed 25 mm standard baseplate 5) Aequalis PerForm Reversed 36 mm standard glenosphere 6) Glenoid screws: central 40 mm, superior 34 mm inferior 38 mm Pathology: none sent Surgeon: Broderick Lawrence Youth Associate: The nurse practitioner's expertise was required in assisted with positioning, draping, exposure, and plantation components and wound closure. Anesthesia: General and Nerve Block (Interscalene block) Estimated blood loss (mL): 100 Findings: The patient had a complete tear of the supraspinatus and at superior edge of the infraspinatus the tendon. There is no chondromalacia and no glenoid or humeral head wear Condition: stable Disposition: PACU Brief History: The patient is a 72-year-old female who underwent unsuccessful rotator cuff repair with continued pain and active loss of shoulder flexion Procedure: An intrascalene blocks provided the holding area. The patient was taken to the operating room and given a general anesthesia. They were given 2 g of Ancef. A Desouza stand was covered and use to support support the arm A timeout was performed. A 10 cm long incision was made over the deltopectoral groove and dissection carried out with a scalpel blade to the deltopectoral interval. The cephalic vein was identified and retracted laterally. Digital dissection was accomplished to free lesions beneath the deltoid and beneath the coracobrachialis musculature. An Johnnie medium tissue protector was used to retract the pectoralis major and the deltoid. The biceps tendon was absent. The subscapularis and a capsule was then peeled off of the lesser tuberosity and fixed with 3 tape sutures in a locking Krak?w fashion from superior to inferior. Capsular release was accomplished across the inferior capsule from the glenoid. Utilizing electrocautery the glenoid was exposed circumferentially. The centering guide was used to place the central guidepin at a 10 degrees inferior slope in accordance with our preoperative plan to bring the glenoid down to neutral tilt. Glenoid reaming entailed removing slightly more inferior bone. A 25 mm Aequalis PerForm baseplate was secured with a 40 x 6.5 mm central screw, a superior locking 34 mm screw, an inferior locking 38 mm screw. Due to the small size and anterior and posterior screws were not placed. A standard 36 mm Aequalis perFORM Reversed Glenosphere was then placed. Attention was then focused on the humerus. Sequential and broaching of the canal was accomplished up to a size 3B stem with satisfactory stability.. A trial reduction with the []mm reversed insert provided adequate stability. The final humeral stem, reverse tray and insert were press-fit into place and the shoulder reduced with a stable reduction. 4 drill holes were then made in the bicipital groove. Sutures through the subscapularis were then passed through tunnels at the most superior suture through the most proximal hole. The second pair of sutures through the second hole, the third pair of sutures to the third hole in the fourth suture through the fourth hole. They were tied over a small [place] 4-hole mini plate. The wound was irrigated with a gentamycin antibiotic solution. The deltopectoral interval was closed with 0 Vicryl. The subcutaneous tissues were closed with 2-0 Stratafix. The skin was closed with a running 4-0 Stratafix. Sterile dressings were applied. The patient was placed in a [], extubated and taken to recovery room in stable condition.
--- NOTE | 2023-02-20 16:24 | ANE.PACU2 ---
Inpatient post-anesthesia follow up: Airway intact: Yes Vital signs: Temperature 97.0 F Pulse Rate 97 Respiratory Rate 21 Blood Pressure 154/91 Pulse Oximetry 97 Oxygen Delivery Me thod Room Air Oxygen Flow Rate 6 Fraction of Inspir ed Oxygen Hydration adequate: Yes Nausea and vomiting: No Pain level: 1 Mental status: Baseline
--- NOTE | 2023-02-20 16:29 | XR_ITS ---
WS: [id number] Exam: XR shoulder RT min 2V* [id number] Date/Time of Exam: 02/20/2023 4:30 PM Reason For Exam: Status post reverse total shoulder A reverse shoulder prosthesis has been placed and appears to be in satisfactory position. Postoperati ve changes in the adjacent soft tissues. XR/XR shoulder LT min 2V* [id number] IMPRESSION: 1. Right-sided reverse shoulder prosthesis in satisfactory position.
[2023-02-20] MEDS: sodium chloride 0.9% 1,000 ML 80 ML IV (17:21)
[2023-02-20] MEDS: ondansetron 2 mg/ML SDV 2 mL 4 MG IVP ×2 (17:22→21:30)
[2023-02-20] MEDS: metoclopramide 5 mg/mL SDV 2 mL 10 MG IVP (18:11)
[2023-02-20] MEDS: scopolamine 1.5 Patch 1 PATCH TRANSDERMA (19:07)
[2023-02-20] MEDS: gabapentin 300 mg Capsule PO (20:56)
[2023-02-20] MEDS: gemfibrozil 600 mg Tablet PO (20:56)
[2023-02-20] MEDS: flecainide 100 mg Tablet PO (20:56)
[2023-02-20] MEDS: pantoprazole DR 40 mg Tablet PO (20:56)
[2023-02-21 00:40] VITALS: BP 114/64; PULSE 80; RESP 16; O2SAT 96
--- NOTE | 2023-02-21 02:57 | PC.NURSE ---
Patient refusing Celebrex, stating that she does not take it.
[2023-02-21 03:37] VITALS: BP 111/61; PULSE 65; RESP 16; TEMP 36.5; O2SAT 94
--- NOTE | 2023-02-21 04:24 | PC.NURSE ---
Patient began shift on two liters nasal cannula and was able to be weaned to room air.
--- NOTE | 2023-02-21 04:25 | PC.NURSE ---
Patient voiding 25 ml or less on each void. Post-void bladder scan shows [address] Alcaraz notified. Straight cath x1 ordered.
[2023-02-21] MEDS: sodium chloride 0.9% 1,000 ML 80 ML IV (04:47)
[2023-02-21] MEDS: acetaminophen 500 mg Tablet 1000 MG PO ×2 (04:47→12:52)
[2023-02-21] MEDS: ceFAZolin 2,000 MG in sodium chloride 0.9% (plus) 50 ML 100 MG IV (04:48)
--- NOTE | 2023-02-21 07:16 | PM.DCS ---
Discharge Providers Date of Admission: 02/20/23 16:37 Date of Discharge: February 21, 2023 Attending Provider at Admission: Broderick Latif MD Attending Provider at Discharge: Broderick Latif MD Primary Care Provider: JESSENIA Harden Diagnoses at Discharge Discharge Diagnosis (1) Tear of right rotator cuff: Status: Resolved (2) Status post replacement of right shoulder joint: Status: Acute Reason for Visit Reason for Visit: M75.101 Hospital Course Hospital Course The patient tolerated surgery well. They remained hemodynamically stable. They was begun on aspirin and sequential compression dressings for DVT prophylaxis. The patient did well overnight after surgery. As the pain was adequately controlled and they were fully mobile they were discharged home. Physical Exam Narrative: On the day of discharge the patient's dressing was clean and dry. The patient's would fire his deltoid and their biceps. No distal neurovascular deficits were noted. Discharge Data Studies Completed and Pending Pending at discharge Category Date Time Status XR shoulder LT min 2V* [id number] Routine Exams 02/20/23 16:29 Taken Laboratory Results WBC 7.2 10^3/uL (4.0-10.0) 02/10/23 10:50 RBC 4.58 10^6/uL (4.1-5.3) 02/10/23 10:50 Hgb 13.9 g/dL (11.5-15.3) 02/10/23 10:50 Hct 42.2 % (37.0-47.0) 02/10/23 10:50 MCV 92.1 fl (81-99) 02/10/23 10:50 MCH 30.3 pg (28.0-34.0) 02/10/23 10:50 MCHC 32.9 g/dL (30.0-36.0) 02/10/23 10:50 RDW 13.2 % (12.1-15.1) 02/10/23 10:50 Plt Count 269 10^3/cmm (130-400) 02/10/23 10:50 MPV 9.8 fL (7.4-10.4) 02/10/23 10:50 Neut % (Auto) 66.0 % 02/10/23 10:50 Lymph % (Auto) 24.5 % 02/10/23 10:50 [place] % (Auto) 6.8 % 02/10/23 10:50 Eos % (Auto) 1.5 % 02/10/23 10:50 Baso % (Auto) 0.8 % 02/10/23 10:50 Neut # (Auto) 4.77 10^3/uL (1.8-7.7) 02/10/23 10:50 Lymph # (Auto) 1.8 10^3/uL (0.8-4.8) 02/10/23 10:50 [place] # (Auto) 0.5 10^3/uL (0.2-0.9) 02/10/23 10:50 Eos # (Auto) 0.1 10^3/uL (0.0-0.8) 02/10/23 10:50 Baso # (Auto) 0.1 10^3/uL (0.0-0.1) 02/10/23 10:50 Nucleated RBC % (auto) 0 % 02/10/23 10:50 Nucleated RBCs # 0.0 /100WBC 02/10/23 10:50 Sodium 138 mmol/L (136-145) 02/10/23 10:50 Potassium 4.3 mmol/L (3.5-5.1) 02/10/23 10:50 Chloride 103 mmol/L (98-107) 02/10/23 10:50 Carbon Dioxide 27 mmol/L (22-29) 02/10/23 10:50 Anion Gap 12.3 (5-19) 02/10/23 10:50 BUN 15 mg/dL (8-23) 02/10/23 10:50 Creatinine 0.6 mg/dL (0.5-0.9) 02/10/23 10:50 GFR Calculation Not Reportable 02/10/23 10:50 Glucose 80 mg/dL (65-115) 02/10/23 10:50 Calculated Osmolality 286 mOsm/kg (285-295) 02/10/23 10:50 Calcium 8.9 mg/dL (8.5-10.5) 02/10/23 10:50 Vitals Last Vital Signs Temp 97.7 F 02/21/23 03:37 Pulse 65 02/21/23 03:37 Resp 16 02/21/23 03:37 BP 111/61 02/21/23 03:37 Pulse Ox 94 02/21/23 03:37 O2 Del Method Room Air 02/21/23 03:37 O2 Flow Rate 2 02/20/23 20:40 Discharge Plan Discharge Patient Disposition: Home Condition: Stable Prescriptions: New oxycodone 5 mg Tablet 5 mg PO Q4H PRN (Reason: Moderate Pain) 7 Days Qty: 30 0RF acetaminophen 500 mg Tablet 1,000 mg PO Q8H 14 Days Qty: 84 0RF Continued levothyroxine 25 mcg capsule 25 mcg PO DAILY gemfibrozil 600 mg tablet 600 mg PO BID gabapentin 300 mg capsule 300 mg PO TID omeprazole magnesium [Prilosec OTC] 20 mg tablet,delayed release (DR/EC) 20 mg PO BID flecainide 100 mg tablet 100 mg PO Q12H ondansetron HCl 4 mg tablet 4 mg PO Q8H PRN (Reason: nausea and vomiting) Qty: 20 0RF Discontinued hydrocodone-acetaminophen 5-325 mg tablet 1 tab PO Q6H PRN (Reason: pain) 5 Days Qty: 20 0RF Discharge Orders: Discharge Order (Routine); Ordered 02/21/23 Ordered By: Broderick Latif Referrals: Broderick Latif MD [Physician] - 03/07/23 3:45 pm Discharge Diet: Advance as tolerated Discharge Activity: Limit activity as instructed Patient Instructions: Opioid Safety Activity Restrictions/Additional Instructions: Okay to shower. No soaking incision in tub Apply FirstIce up to 20 min/hr for pain and swelling Take Celebrex twice a day for the next 15 days for pain , discontinue other anti-inflammatories Take Tylenol 500mg (up to 2 tabs) 3 times a day for mild pain take oxycodone for breakthrough pain. Exercises per Occupational Therapy IF HAVE ANY PROBLEMS OR QUESTIONS CALL HOSPITAL RESOURCE DEVELOPMENT MANAGER AT AND ASK TO HAVE DR. LATIF PAGED. Discharge Attestations Time Spent in Discharge Care*: other Quality Metrics Clinical Quality Measures [ No reported AMI, CVA or VTE this stay] Coding Level of Care Code Acute Code for Chg Fwd Diagnoses Tear of right rotator cuff M75.101 Status post replacement of right shoulder joint Z96.611
[2023-02-21 08:00] VITALS: BP 115/63; PULSE 66; RESP 16; TEMP 36.3; O2SAT 95
[2023-02-21 08:43] VITALS: RESP 18
[2023-02-21] MEDS: gemfibrozil 600 mg Tablet PO (08:43)
[2023-02-21] MEDS: oxyCODONE 5 mg IR Tab/Cap PO ×2 (08:43→12:54)
[2023-02-21] MEDS: levothyroxine 25 mcg Tablet PO (08:43)
[2023-02-21] MEDS: gabapentin 300 mg Capsule PO (08:43)
[2023-02-21] MEDS: flecainide 100 mg Tablet PO (08:43)
[2023-02-21] MEDS: aspirin 325 mg Tablet PO (08:44)
[2023-02-21] MEDS: pantoprazole DR 40 mg Tablet PO (08:44)
--- NOTE | 2023-02-21 10:14 | PC.CHAP ---
Pastoral Care Encounter/Spiritual Assessment Type of Contact [] Declined motor setter visit [] Patient/Family/Request visit [] Outpatient visit [] Follow-up visit [] Physician referral [] Code/Alert [x] Routine visit [] Staff referral [] Actively dying [] Patient sleeping [x] Family support [] [] Out of room [] Palliative care [] [] Receiving care in room [] Pre-surgical visit [] Trauma [] Long length of stay [] ICU visit [] Other: Relational/Emotional Strength [x] Patient feels connected with others/family/visitors/staff [] Distress [] Loneliness/isolation [] Abandonment Spirituality of Patient [x] Person of Marlin [x] Attends Buddhism of their [place] [x] Believes in Prayer [x] Reads Bible or Christianity materials [] There are Spiritual issues to be addressed Arcade Game Technician Interventions [x] Prayer [x] Active listening [] Non-anxious presence [x] Spiritual/emotional support [] Crisis/trauma care [] Spiritual counseling [] Bereavement support [] Provided bereavement packet [] Provided Bible/devotional materials [] Provided toy/stuffed animal, coloring book to patient or family member [] Provided Communion [] Anointing/[place] [] Salvation [x] Completed spiritual assessment [] Other: Impact on Illness or Injury [] Angry [] Fearful [] Anxious [] Often cries [] Exhaustion [] Unable to work [] Unable to attend buddhism [] Unable to walk/stand [] Unable to read [] Unable to drive [] Unable to eat/drink [] Unable to sleep [] Unable to be with family [] Patient intubated [] Other: Summary Time spent with patient 5 min
[2023-02-21 12:54] VITALS: RESP 17
--- NOTE | 2023-02-21 15:05 | PC.NURSE ---
Discharge Note Patient discharged to home via private vehicle accompanied by . Discharge instructions reviewed with patient and/or factory representative. Mobile pharmacy medications and/or prescriptions provided. Belongings/home medications returned.
[2023-02-21 16:55] VITALS: RESP 17
== END 2023-02-21 16:57 | disposition home or self-care (01) ==
LOC: MEDSURG 18:13
PROVIDERS: Anesthesiology; Admitting Provider Orthopaedic Surgery; PCP Nurse Practitioner Family; Visit Provider Orthopaedic Surgery
PROC: (CPT 23472; principal; 2023-02-20 12:15)
DX: M75.121 Complete rotator cuff tear or rupture of right shoulder, not specified as traumatic (principal); K21.9 Gastro-esophageal reflux disease without esophagitis; E78.00 Pure hypercholesterolemia, unspecified; E03.9 Hypothyroidism, unspecified; I45.2 Bifascicular block; Z88.2 Allergy status to sulfonamides
CPT/HCPCS: 23472; 36415; 51702; 51798; 73030; 80048; 85025; 97165; C1713; C1776; G0378; J0690; J1100; J1170; J1580; J2250; J2370; J2405; J2704; J2765; J2795; J3010; J3490; J7030

== ENCOUNTER → 2023-03-07 15:38 | Outpatient (BNVA) | payer MEDICARE, SELFPAY | PROVIDERS: PCP Nurse Practitioner Family; Visit Provider Orthopaedic Surgery | DX: Z96.611 Presence of right artificial shoulder joint (principal) | CPT/HCPCS: 99024 ==

== ENCOUNTER → 2023-04-04 15:39 | Outpatient (BNVA) | payer MEDICARE, SELFPAY | PROVIDERS: PCP Nurse Practitioner Family; Visit Provider Orthopaedic Surgery | DX: Z96.611 Presence of right artificial shoulder joint (principal) | CPT/HCPCS: 73030; 99024 ==

== ENCOUNTER → 2023-05-16 09:44 | Outpatient (BNVA) | payer MEDICARE, SELFPAY | PROVIDERS: PCP Nurse Practitioner Family; Visit Provider Nurse Practitioner Family | DX: Z96.611 Presence of right artificial shoulder joint (principal) | CPT/HCPCS: 73030; 99024; 99213 ==

== ENCOUNTER → 2023-11-14 11:19 | Outpatient (BNVA) | payer MEDICARE, SELFPAY | PROVIDERS: PCP Nurse Practitioner Family; Visit Provider Physician Assistant | DX: Z96.611 Presence of right artificial shoulder joint (principal) | CPT/HCPCS: 73030; 99213 ==

== ENCOUNTER → 2024-02-01 09:01 | Outpatient (BNVA) | payer MEDICARE, SELFPAY | PROVIDERS: PCP Nurse Practitioner Family; Visit Provider Physician Assistant | DX: Z96.611 Presence of right artificial shoulder joint (principal) | CPT/HCPCS: 73030; 99213 ==

== ENCOUNTER 2024-03-21 11:39 | Outpatient (CLI) | payer MEDICARE, SELFPAY ==
--- NOTE | 2024-03-21 09:30 | MM_ITS ---
WS: [id number] BILATERAL SCREENING DIGITAL TOMOSYNTHESIS MAMMOGRAM WITH CAD HISTORY: SCREENING COMPARISON: 02/08/2021, 01/28/2019 Bilateral CC and MLO views with tomosynthesis and synthetic mammography submitted. Computer aided det ection analyzed. Breast composition: There are scattered areas of fibroglandular density. No suspicious masses, microc alcifications or architectural distortion. Benign calcification RIGHT breast. Bilateral arterial calc ifications. MM/[place] [id number] IMPRESSION: BI-RADS: 2-Benign FOLLOW UP: 1 Year Follow-up
== END 2024-03-21 11:40 | disposition home or self-care (01) ==
LOC: MOBLMAM 11:50
PROVIDERS: PCP Nurse Practitioner Family; Visit Provider Nurse Practitioner Family
DX: Z12.31 Encounter for screening mammogram for malignant neoplasm of breast (principal); R92.323 Mammographic fibroglandular density, bilateral breasts; R92.1 Mammographic calcification found on diagnostic imaging of breast
CPT/HCPCS: 77063; 77067

== ENCOUNTER → 2025-02-11 08:24 | Outpatient (BNVA) | payer MEDICARE, SELFPAY | PROVIDERS: PCP Nurse Practitioner Family; Visit Provider Physician Assistant | DX: Z96.611 Presence of right artificial shoulder joint (principal) | CPT/HCPCS: 73030; 99213 ==

== ENCOUNTER 2025-04-17 09:47 | Outpatient (CLI) | payer MEDICARE, SELFPAY ==
--- NOTE | 2025-04-17 10:00 | MM_ITS ---
WS: [id number] BILATERAL SCREENING DIGITAL TOMOSYNTHESIS MAMMOGRAM WITH CAD HISTORY: SCREENING COMPARISON: 03/21/2024, 02/08/2021 Bilateral CC and MLO views with tomosynthesis and synthetic mammography submitted. Computer aided detection analyzed. Breast composition: The breasts are almost entirely fatty. No suspicious masses, microcalcifications or architectural distortion. Benign coarse calcification RIGHT breast. MM/MM scr BI tomosynthesis [id number] IMPRESSION: BI-RADS: 2 - Benign. FOLLOW UP: 1 Year Follow-up
== END 2025-04-17 09:48 | disposition home or self-care (01) ==
PROVIDERS: PCP Nurse Practitioner Family; Visit Provider Nurse Practitioner Family
DX: Z12.31 Encounter for screening mammogram for malignant neoplasm of breast (principal)
CPT/HCPCS: 77063; 77067